=== PATIENT | female | born 1960 | race Two or more races ===

== ENCOUNTER 2017-09-30 12:24 | Emergency (ER) | payer MEDICAID ==
[~2017-09-30] VITALS: Ht 152.4 cm; Wt 55.8 kg
[2017-09-30 13:59] LABS: Basophils # (auto) 0.1 uL; Basophils % (auto) 0.7 % (0.0-2.0); Eosinophils # (auto) 0.4 uL; Eosinophils % (auto) 4.1 % (0.0-7.0); Hematocrit 40.6 % (36.0-46.0); Hemoglobin 13.7 g/dL (12.2-16.2); Lymphocytes # (auto) 2.7 uL; Lymphocytes % (auto) 30.6 % (10.0-50.0); Mean Corpuscular Hemoglobin 30.3 pg (28.0-32.0); Mean Corpuscular Hgb Conc. 33.6 g/dL (32.0-36.0); Mean Corpuscular Volume 90.2 fL (80.0-100.0); Monocytes # (auto) 0.4 uL; Monocytes % (auto) 4.8 % (0.0-12.0); Neutrophils # (auto) 5.4 uL; Neutrophils % (auto) 59.8 % (37.0-80.0); Platelet Count (auto) 431 10^3/uL (140-450); Red Cell Distribution Width 13.3 % (11.8-14.3)
[2017-09-30 14:10] LABS: Albumin 3.6 g/dL (3.4-5.0); BUN/Creatinine Ratio 17.5; Bilirubin, Total 0.4 mg/dL (0.2-1.0); Calcium 8.8 mg/dL (8.5-10.1); Potassium 3.8 mmol/L (3.5-5.1)
[2017-09-30 14:50] VITALS: BP 159/81
== END 2017-09-30 16:02 | disposition home or self-care (01) ==
LOC: ER 12:31
DX: M25.511 Pain in right shoulder (principal); E11.9 Type 2 diabetes mellitus without complications; I10 Essential (primary) hypertension; Z90.49 Acquired absence of other specified parts of digestive tract
CPT/HCPCS: 36415; 80053; 85025